=== PATIENT | male | born 1995 | race Caucasian/White ===

== ENCOUNTER 2018-04-16 15:38 | Emergency (ER) | payer SELFPAY ==
[~2018-04-16] VITALS: Ht 195.6 cm; Wt 74.7 kg
[2018-04-16 15:42] VITALS: BP 112/70
== END 2018-04-16 16:35 | disposition home or self-care (01) ==
LOC: ED 16:29
DX: K02.9 Dental caries, unspecified (principal); F17.200 Nicotine dependence, unspecified, uncomplicated
CPT/HCPCS: 99283

== ENCOUNTER 2018-05-28 13:35 | Emergency (ER) | payer OTHER ==
[~2018-05-28] VITALS: Ht 195.6 cm; Wt 74.9 kg
[2018-05-28 13:44] VITALS: BP 128/61
[2018-05-28] MEDS ORDERED: AZITHROMYCIN 500 MG TABLET ONE (14:13)
[2018-05-28] MEDS ORDERED: CEFTRIAXONE 250 MG ONE (14:13)
[2018-05-28] MEDS ORDERED: CEFTRIAXONE 250 MG IM ONE (14:30)
[2018-05-28] MEDS ORDERED: AZITHROMYCIN 500 MG TABLET PO ONE (14:30)
== END 2018-05-28 15:20 | disposition home or self-care (01) ==
LOC: ED 15:09
DX: L73.9 Follicular disorder, unspecified (principal)
CPT/HCPCS: 87491; 87591; 96372; 99284; J0696